=== PATIENT | female | born 1955 | race Caucasian/White ===

== ENCOUNTER 2017-04-28 04:09 | Emergency (ER) | payer OTHER ==
[~2017-04-28] VITALS: Ht 152.4 cm; Wt 81.4 kg
[~2017-04-28 04:09] MED LIST: LORA10CA PO; METF-163; METF10002 PO; OMEG500C3 PO; SIMV10TA3 PO; SIMV1POW
[2017-04-28 04:17] VITALS: BP 134/88
== END 2017-04-28 05:30 | disposition home or self-care (01) ==
LOC: ED 05:10
DX: H10.32 Unspecified acute conjunctivitis, left eye (principal); L03.213 Periorbital cellulitis; E11.9 Type 2 diabetes mellitus without complications; Z88.6 Allergy status to analgesic agent; Z88.8 Allergy status to other drugs, medicaments and biological substances
CPT/HCPCS: 99282

== ENCOUNTER 2019-06-03 13:57 | Inpatient (IN) | payer OTHER ==
[~2019-06-03] VITALS: Ht 152.4 cm; Wt 75.2 kg
[~2019-06-03 13:57] MED LIST changes: +SIMV10TA18 PO; -SIMV10TA3 PO
--- NOTE | 2019-06-03 14:24 | NUR ---
PT CAME IN CO OF SOB, ABD PAIN, AND COUGH X2DAYS. DENIES TRAUMA. PT SAYS SHE HAS DMII BUT IT IS CONTROLLED.
[2019-06-03 14:55] LABS: BASOPHILS # (AUTO) 0.02 x10^3/uL (0-0.1); BASOPHILS % (AUTO) 0 % (0-1); EOSINOPHILS # (AUTO) 0.02 x10^3/uL (0-0.4); EOSINOPHILS % (AUTO) 0 % (1-7); LYMPHOCYTES # (AUTO) 0.84 x10^3/uL (1-3.4); LYMPHOCYTES % (AUTO) 14 % (22-44); MD NO; MEAN CORPUSCULAR HGB CONC 33.7 g/dL (32.4-35.8); MEAN CORPUSCULAR VOLUME 91.8 fL (80-100); MONOCYTES # (AUTO) 0.19 x10^3/uL (0.2-0.8); MONOCYTES % (AUTO) 3 % (2-9); NEUTROPHILS # (AUTO) 4.95 x10^3/uL (1.8-6.8); NEUTROPHILS % (AUTO) 82 % (42-75); PLATELET COUNT 170 x10^3/uL (130-400); RED BLOOD COUNT 5.07 x10^6/uL (3.82-5.3); RED CELL DISTRIBUTION WIDTH 13.7 % (9.6-15.2)
[2019-06-03 15:03] LABS: MICROSCOPIC AUTO
[2019-06-03 15:06] LABS: ALANINE AMINOTRANSFERASE 43 U/L (12-78); ALBUMIN 3.7 g/dL (3.4-5.0); ANION GAP 9 mmol/L (5-15); CALCIUM 8.6 mg/dL (8.5-10.1); CHLORIDE 102 mmol/L (98-107)
[2019-06-03 15:06] LABS: CULTURE INDICATED? NO
[2019-06-03 15:08] LABS: ALKALINE PHOSPHATASE 94 U/L (45-117); BILIRUBIN,TOTAL 0.7 mg/dL (0.2-1.0); TOTAL PROTEIN 7.8 g/dL (6.4-8.2)
--- NOTE | 2019-06-03 15:10 | NUR ---
BREAK RN: PT UPRIGHT ON GURNEY AWAKE & CALM, RESPONDS APPROP TO STAFF, NAD, COMFORT MEASURES PROVIDED, CALL LIGHT WITHN REACH.
--- NOTE | 2019-06-03 15:41 | NUR ---
PT RESTING IN [facility]. O2 DROPPED TO 88% ON RM AIR. TO BRO Addendum: 06/03/19 at 1628 by MARCY PT PLACED BACK ON 2 LITERS 02
--- NOTE | 2019-06-03 16:28 | NUR ---
PT RESTING IN [place]. AWAITING COVID RULE OUT ROOM FOR ADM. PT EDUCATED ON PLAN OF CARE
[2019-06-03] MEDS ORDERED: PROMETHAZINE 25 MG/ML, 1ML IM PRN (17:30)
[2019-06-03] MEDS: GUAIFENESIN 200 MG TABLET PO SCH ×2 (17:30→22:27)
[2019-06-03] MEDS ORDERED: LABETALOL 5MG/ML, 20ML IVPush PRN (17:30)
[2019-06-03] MEDS ORDERED: hydrALAzine 20 MG/ML, 1ML IVPush PRN (17:30)
[2019-06-03] MEDS ORDERED: OMNIPAQUE 350 MG/ML, 100ML BOTTLE ONE (17:50)
--- NOTE | 2019-06-03 18:00 | NUR ---
PT RESTING IN [facility]. AWAITING CT.
[2019-06-03] MEDS: INSULIN LISPRO 100 UNITS/ML, PEN SQ-INSULIN SCH ×2 (18:34→22:46)
[2019-06-03 18:38] VITALS: BP 127/78
[2019-06-03] MEDS ORDERED: SIMVASTATIN 20 MG TABLET ONE (21:34)
[2019-06-03] MEDS ORDERED: DOXYCYCLINE 100MG TABLET ONE (21:34)
[2019-06-03] MEDS: CEFTRIAXONE PMX 1GM/50ML 50 ML IV SCH (22:25)
[2019-06-03] MEDS: SODIUM CHLORIDE 0.9% 1,000 ML IV SCH (22:25)
[2019-06-03] MEDS: HEPARIN 5,000 UNITS/ML, 1ML SQ SCH (22:26)
[2019-06-03] MEDS: SIMVASTATIN 10 MG TABLET PO SCH (22:26)
[2019-06-03] MEDS: DOXYCYCLINE 100MG CAP PO SCH (22:28)
[2019-06-03] MEDS: ONDANSETRON 2MG/ML, 2ML IVPush PRN (22:30)
[2019-06-03 22:48] VITALS: BP 139/86
[2019-06-04] MEDS ORDERED: OXYC5TAB3 PO (00:48)
[2019-06-04] MEDS ORDERED: DULO60CA56 PO (00:50)
[2019-06-04] MEDS ORDERED: CELE-47 PO (01:07)
[2019-06-04] MEDS ORDERED: EMPA25TA PO (01:11)
[2019-06-04] MEDS ORDERED: DULA0.75 SQ (01:14)
[2019-06-04] MEDS ORDERED: OXYcodone IR 5MG TABLET PO PRN (01:30)
[2019-06-04] MEDS ORDERED: OXYCODONE 10MG MC SCH (02:00)
[2019-06-04] MEDS ORDERED: OXYCODONE 5 MG MC SCH (02:00)
[2019-06-04] MEDS: OXYcodone IR 5MG TABLET PO PRN ×4 (02:15→23:20)
[2019-06-04] MEDS: SODIUM CHLORIDE 0.9% 1,000 ML IV SCH ×2 (03:11→17:13)
[2019-06-04 04:02] LABS: RAPID INFLUENZA A Negative (Negative); RAPID INFLUENZA B Negative (Negative)
[2019-06-04 05:16] LABS: MEAN CORPUSCULAR HEMOGLOBIN 31.3 pg (27.0-34.8); MEAN CORPUSCULAR HGB CONC 33.7 g/dL (32.4-35.8); MEAN CORPUSCULAR VOLUME 92.9 fL (80-100); MEAN PLATELET VOLUME 7.5 fL (7.4-10.4); PLATELET COUNT 172 x10^3/uL (130-400); RED CELL DISTRIBUTION WIDTH 13.5 % (9.6-15.2)
[2019-06-04 05:31] LABS: ALANINE AMINOTRANSFERASE 35 U/L (12-78); ANION GAP 6 mmol/L (5-15); CALCIUM 8.1 mg/dL (8.5-10.1); CHLORIDE 101 mmol/L (98-107)
[2019-06-04 05:33] LABS: ALKALINE PHOSPHATASE 74 U/L (45-117); BILIRUBIN,TOTAL 0.5 mg/dL (0.2-1.0); TOTAL PROTEIN 7.2 g/dL (6.4-8.2)
[2019-06-04 05:46] LABS: BASOPHILS # (AUTO) 0.01 x10^3/uL (0-0.1); BASOPHILS % (AUTO) 0 % (0-1); EOSINOPHILS # (AUTO) 0.01 x10^3/uL (0-0.4); EOSINOPHILS % (AUTO) 0 % (1-7); LYMPHOCYTES % (AUTO) 25 % (22-44); MD SCAN; MONOCYTES # (AUTO) 0.22 x10^3/uL (0.2-0.8); MONOCYTES % (AUTO) 5 % (2-9); NEUTROPHILS # (AUTO) 3.07 x10^3/uL (1.8-6.8); NEUTROPHILS % (AUTO) 70 % (42-75)
[2019-06-04] MEDS: ACETAMINOPHEN 325 MG TABLET PO PRN ×3 (07:50→21:53)
[2019-06-04] MEDS: GUAIFENESIN 200 MG TABLET PO SCH ×4 (07:50→21:54)
[2019-06-04] MEDS: HEPARIN 5,000 UNITS/ML, 1ML SQ SCH ×2 (07:51→17:14)
[2019-06-04] MEDS: INSULIN LISPRO 100 UNITS/ML, PEN SQ-INSULIN SCH ×4 (07:58→22:03)
[2019-06-04] MEDS ORDERED: LORATADINE 10 MG TABLET PO PRN (09:00)
[2019-06-04 10:05] VITALS: BP 130/72
[2019-06-04] MEDS: DULOXETINE 30 MG CAPSULE.DR PO SCH (10:05)
[2019-06-04] MEDS: DOXYCYCLINE 100MG CAP PO SCH ×2 (10:05→21:54)
[2019-06-04 14:24] VITALS: BP 142/83
[2019-06-04] MEDS: CEFTRIAXONE PMX 1GM/50ML 50 ML IV SCH (21:53)
[2019-06-04] MEDS: SIMVASTATIN 10 MG TABLET PO SCH (21:54)
[2019-06-04 21:55] VITALS: BP 139/84
[2019-06-05] MEDS: ENOXAPARIN 40 MG/0.4 ML SQ SCH (03:13)
[2019-06-05] MEDS: SODIUM CHLORIDE 0.9% 1,000 ML IV SCH ×2 (03:14→11:55)
[2019-06-05 03:27] VITALS: BP 124/74
[2019-06-05 06:14] LABS: ANION GAP 7 mmol/L (5-15); CALCIUM 8.1 mg/dL (8.5-10.1); CHLORIDE 103 mmol/L (98-107)
[2019-06-05 06:19] LABS: ALANINE AMINOTRANSFERASE 37 U/L (12-78); ALKALINE PHOSPHATASE 72 U/L (45-117); BILIRUBIN,TOTAL 0.5 mg/dL (0.2-1.0); CREATININE 0.72 mg/dL (0.55-1.02); TOTAL PROTEIN 7.3 g/dL (6.4-8.2)
[2019-06-05 06:25] LABS: BASOPHILS # (AUTO) 0.02 x10^3/uL (0-0.1); BASOPHILS % (AUTO) 0 % (0-1); EOSINOPHILS % (AUTO) 0 % (1-7); LYMPHOCYTES # (AUTO) 0.95 x10^3/uL (1-3.4); LYMPHOCYTES % (AUTO) 16 % (22-44); MD NO; MEAN CORPUSCULAR HEMOGLOBIN 30.8 pg (27.0-34.8); MEAN CORPUSCULAR HGB CONC 33.2 g/dL (32.4-35.8); MEAN CORPUSCULAR VOLUME 92.7 fL (80-100); MEAN PLATELET VOLUME 7.9 fL (7.4-10.4); MONOCYTES # (AUTO) 0.18 x10^3/uL (0.2-0.8); MONOCYTES % (AUTO) 3 % (2-9); NEUTROPHILS # (AUTO) 4.65 x10^3/uL (1.8-6.8); NEUTROPHILS % (AUTO) 80 % (42-75); PLATELET COUNT 188 x10^3/uL (130-400); RED BLOOD COUNT 4.68 x10^6/uL (3.82-5.3); RED CELL DISTRIBUTION WIDTH 13.4 % (9.6-15.2)
[2019-06-05] MEDS: GUAIFENESIN 200 MG TABLET PO SCH ×4 (06:26→20:50)
[2019-06-05] MEDS: OXYcodone IR 5MG TABLET PO PRN ×4 (06:26→23:26)
[2019-06-05 08:30] VITALS: BP 130/78
[2019-06-05] MEDS: DOXYCYCLINE 100MG CAP PO SCH (08:30)
[2019-06-05] MEDS: INSULIN LISPRO 100 UNITS/ML, PEN SQ-INSULIN SCH ×4 (08:30→20:50)
[2019-06-05] MEDS: DULOXETINE 30 MG CAPSULE.DR PO SCH (08:30)
[2019-06-05] MEDS: ACETAMINOPHEN 325 MG TABLET PO PRN ×2 (09:10→15:51)
[2019-06-05] MEDS: ONDANSETRON 2MG/ML, 2ML IVPush PRN ×2 (10:03→23:25)
[2019-06-05 14:42] VITALS: BP 142/77
[2019-06-05] MEDS: AZITHROMYCIN 500 MG in SODIUM CHLORIDE 0.9% 250 ML IV SCH (18:05)
[2019-06-05 20:50] VITALS: BP 135/73
[2019-06-05] MEDS: SIMVASTATIN 10 MG TABLET PO SCH (20:50)
[2019-06-05] MEDS ORDERED: HYDROXYCHLOROQUINE 200 MG TABLET PO SCH (21:00)
[2019-06-06 02:15] VITALS: BP 129/68
[2019-06-06] MEDS: ENOXAPARIN 40 MG/0.4 ML SQ SCH (02:37)
[2019-06-06] MEDS: ACETAMINOPHEN 325 MG TABLET PO PRN ×3 (02:38→18:20)
[2019-06-06] MEDS: OXYcodone IR 5MG TABLET PO PRN ×3 (06:05→21:00)
[2019-06-06] MEDS: GUAIFENESIN 200 MG TABLET PO SCH ×4 (06:05→21:00)
[2019-06-06] MEDS: INSULIN LISPRO 100 UNITS/ML, PEN SQ-INSULIN SCH ×4 (07:00→22:14)
[2019-06-06 08:01] VITALS: BP 120/69
[2019-06-06] MEDS: DULOXETINE 30 MG CAPSULE.DR PO SCH (08:06)
[2019-06-06] MEDS: HYDROXYCHLOROQUINE 200 MG TABLET PO SCH ×2 (08:06→21:00)
[2019-06-06 08:35] LABS: BASOPHILS % (AUTO) 0 % (0-1); EOSINOPHILS % (AUTO) 0 % (1-7); LYMPHOCYTES % (AUTO) 11 % (22-44); MD NO; MEAN CORPUSCULAR HEMOGLOBIN 30.9 pg (27.0-34.8); MEAN CORPUSCULAR HGB CONC 33.4 g/dL (32.4-35.8); MEAN CORPUSCULAR VOLUME 92.5 fL (80-100); MEAN PLATELET VOLUME 7.2 fL (7.4-10.4); MONOCYTES # (AUTO) 0.26 x10^3/uL (0.2-0.8); MONOCYTES % (AUTO) 4 % (2-9); NEUTROPHILS # (AUTO) 5.93 x10^3/uL (1.8-6.8); NEUTROPHILS % (AUTO) 85 % (42-75); PLATELET COUNT 216 x10^3/uL (130-400); RED BLOOD COUNT 4.57 x10^6/uL (3.82-5.3); RED CELL DISTRIBUTION WIDTH 13.2 % (9.6-15.2)
[2019-06-06 08:43] LABS: ALANINE AMINOTRANSFERASE 27 U/L (12-78); ALBUMIN 2.8 g/dL (3.4-5.0); ANION GAP 6 mmol/L (5-15); CALCIUM 8.2 mg/dL (8.5-10.1); CHLORIDE 105 mmol/L (98-107)
[2019-06-06 08:46] LABS: ALKALINE PHOSPHATASE 63 U/L (45-117); BILIRUBIN,TOTAL 0.6 mg/dL (0.2-1.0)
[2019-06-06] MEDS: ASCORBIC ACID 500 MG TABLET PO SCH ×2 (09:50→16:55)
[2019-06-06] MEDS: SENNA/DOCUSATE TABLET PO SCH (12:00)
[2019-06-06] MEDS: DOCUSATE 100 MG CAPSULE PO SCH (12:00)
[2019-06-06 13:58] VITALS: BP 148/73
[2019-06-06] MEDS: AZITHROMYCIN 500 MG in SODIUM CHLORIDE 0.9% 250 ML IV SCH (18:07)
[2019-06-06 21:00] VITALS: BP 126/74
[2019-06-06] MEDS: SIMVASTATIN 10 MG TABLET PO SCH (21:00)
[2019-06-07] MEDS: ENOXAPARIN 40 MG/0.4 ML SQ SCH (02:50)
[2019-06-07] MEDS: OXYcodone IR 5MG TABLET PO PRN ×2 (03:05→16:54)
[2019-06-07 03:25] VITALS: BP 147/83
[2019-06-07] MEDS: ONDANSETRON 2MG/ML, 2ML IVPush PRN (05:36)
[2019-06-07] MEDS: GUAIFENESIN 200 MG TABLET PO SCH ×4 (05:36→20:59)
[2019-06-07] MEDS: ACETAMINOPHEN 325 MG TABLET PO PRN ×2 (05:36→22:09)
[2019-06-07] MEDS: INSULIN LISPRO 100 UNITS/ML, PEN SQ-INSULIN SCH ×4 (07:00→21:00)
[2019-06-07 07:46] VITALS: BP 136/72
[2019-06-07] MEDS: ASCORBIC ACID 500 MG TABLET PO SCH ×2 (07:52→16:54)
[2019-06-07] MEDS: SENNA/DOCUSATE TABLET PO SCH (07:53)
[2019-06-07] MEDS: DULOXETINE 30 MG CAPSULE.DR PO SCH (07:53)
[2019-06-07] MEDS: HYDROXYCHLOROQUINE 200 MG TABLET PO SCH ×2 (07:53→20:59)
[2019-06-07] MEDS: DOCUSATE 100 MG CAPSULE PO SCH (07:53)
[2019-06-07] MEDS: PANTOPRAZOLE 40 MG IV IVPush SCH (10:22)
[2019-06-07] MEDS: KETOROLAC 30 MG/1 ML IVPush SCH ×3 (10:22→22:30)
[2019-06-07 12:25] VITALS: BP 150/84
[2019-06-07] MEDS: AZITHROMYCIN 500 MG in SODIUM CHLORIDE 0.9% 250 ML IV SCH (16:53)
[2019-06-07 20:50] VITALS: BP 156/81
[2019-06-07] MEDS: MELATONIN 3 MG TABLET PO SCH (20:58)
[2019-06-07] MEDS: SIMVASTATIN 10 MG TABLET PO SCH (20:59)
[2019-06-08] MEDS: ENOXAPARIN 40 MG/0.4 ML SQ SCH (02:28)
[2019-06-08 02:58] VITALS: BP 127/74
[2019-06-08] MEDS: KETOROLAC 30 MG/1 ML IVPush SCH ×4 (04:03→22:30)
[2019-06-08] MEDS ORDERED: LORazepam 2 MG/ML, 1ML IVPush PRN (05:00)
[2019-06-08] MEDS: GUAIFENESIN 200 MG TABLET PO SCH ×4 (05:04→21:11)
[2019-06-08] MEDS: INSULIN LISPRO 100 UNITS/ML, PEN SQ-INSULIN SCH ×4 (08:29→21:00)
[2019-06-08] MEDS: PANTOPRAZOLE 40 MG IV IVPush SCH (08:30)
[2019-06-08] MEDS: DOCUSATE 100 MG CAPSULE PO SCH (08:30)
[2019-06-08] MEDS: DULOXETINE 30 MG CAPSULE.DR PO SCH (08:30)
[2019-06-08] MEDS: ASCORBIC ACID 500 MG TABLET PO SCH ×2 (08:30→16:27)
[2019-06-08] MEDS: ZINC SULFATE 220 MG CAPSULE PO SCH (08:31)
[2019-06-08] MEDS: CHOLECALCIFEROL 1,000 UNIT TABLET PO SCH (08:31)
[2019-06-08] MEDS: HYDROXYCHLOROQUINE 200 MG TABLET PO SCH ×2 (08:31→21:10)
[2019-06-08] MEDS: SENNA/DOCUSATE TABLET PO SCH (08:31)
[2019-06-08 08:44] VITALS: BP 131/81
[2019-06-08 08:52] LABS: BASOPHILS # (AUTO) 0.01 x10^3/uL (0-0.1); BASOPHILS % (AUTO) 0 % (0-1); EOSINOPHILS # (AUTO) 0.04 x10^3/uL (0-0.4); EOSINOPHILS % (AUTO) 1 % (1-7); LYMPHOCYTES # (AUTO) 0.73 x10^3/uL (1-3.4); LYMPHOCYTES % (AUTO) 15 % (22-44); MD NO; MEAN CORPUSCULAR HEMOGLOBIN 31.2 pg (27.0-34.8); MEAN CORPUSCULAR HGB CONC 34.1 g/dL (32.4-35.8); MEAN CORPUSCULAR VOLUME 91.6 fL (80-100); MONOCYTES # (AUTO) 0.26 x10^3/uL (0.2-0.8); MONOCYTES % (AUTO) 5 % (2-9); NEUTROPHILS # (AUTO) 3.89 x10^3/uL (1.8-6.8); NEUTROPHILS % (AUTO) 79 % (42-75); PLATELET COUNT 299 x10^3/uL (130-400); RED BLOOD COUNT 4.74 x10^6/uL (3.82-5.3)
[2019-06-08 08:56] LABS: ALBUMIN 2.7 g/dL (3.4-5.0); ANION GAP 5 mmol/L (5-15); CHLORIDE 103 mmol/L (98-107)
[2019-06-08 09:03] LABS: ALANINE AMINOTRANSFERASE 44 U/L (12-78); ALKALINE PHOSPHATASE 75 U/L (45-117); BILIRUBIN,TOTAL 0.7 mg/dL (0.2-1.0); CREATININE 0.66 mg/dL (0.55-1.02); TOTAL PROTEIN 7.1 g/dL (6.4-8.2)
[2019-06-08 12:39] VITALS: BP 148/83
[2019-06-08] MEDS: AZITHROMYCIN 500 MG in SODIUM CHLORIDE 0.9% 250 ML IV SCH (16:27)
[2019-06-08 20:37] VITALS: BP 148/81
[2019-06-08] MEDS: MELATONIN 3 MG TABLET PO SCH (21:11)
[2019-06-08] MEDS: SIMVASTATIN 10 MG TABLET PO SCH (21:11)
[2019-06-09] MEDS: ACETAMINOPHEN 325 MG TABLET PO PRN (00:15)
[2019-06-09] MEDS: ENOXAPARIN 40 MG/0.4 ML SQ SCH (02:35)
[2019-06-09 03:06] VITALS: BP 132/74
[2019-06-09] MEDS: KETOROLAC 30 MG/1 ML IVPush SCH (04:24)
[2019-06-09] MEDS: PANTOPRAZOLE 40MG TABLET PO SCH (05:36)
[2019-06-09] MEDS: GUAIFENESIN 200 MG TABLET PO SCH ×4 (05:36→21:00)
[2019-06-09] MEDS: SENNA/DOCUSATE TABLET PO SCH (08:44)
[2019-06-09] MEDS: ZINC SULFATE 220 MG CAPSULE PO SCH (08:44)
[2019-06-09] MEDS: DULOXETINE 30 MG CAPSULE.DR PO SCH (08:44)
[2019-06-09] MEDS: DOCUSATE 100 MG CAPSULE PO SCH (08:44)
[2019-06-09] MEDS: CHOLECALCIFEROL 1,000 UNIT TABLET PO SCH (08:44)
[2019-06-09] MEDS: ASCORBIC ACID 500 MG TABLET PO SCH ×2 (08:44→16:35)
[2019-06-09] MEDS: HYDROXYCHLOROQUINE 200 MG TABLET PO SCH ×2 (08:44→21:00)
[2019-06-09 08:45] VITALS: BP 115/71
[2019-06-09] MEDS: INSULIN LISPRO 100 UNITS/ML, PEN SQ-INSULIN SCH ×4 (09:01→21:11)
[2019-06-09] MEDS: BUTALB/APAP/CAFFEINE 50MG/325MG/40MG PO PRN ×2 (11:53→16:59)
[2019-06-09 16:06] VITALS: BP 129/84
[2019-06-09] MEDS: AZITHROMYCIN 500 MG in SODIUM CHLORIDE 0.9% 250 ML IV SCH (16:35)
[2019-06-09 19:16] VITALS: BP 125/79
[2019-06-09] MEDS: MELATONIN 3 MG TABLET PO SCH (21:00)
[2019-06-09] MEDS: SIMVASTATIN 10 MG TABLET PO SCH (21:00)
[2019-06-10] MEDS: ENOXAPARIN 40 MG/0.4 ML SQ SCH (02:20)
[2019-06-10 02:40] VITALS: BP 118/70
[2019-06-10] MEDS: BUTALB/APAP/CAFFEINE 50MG/325MG/40MG PO PRN ×2 (04:22→17:15)
[2019-06-10] MEDS: PANTOPRAZOLE 40MG TABLET PO SCH (06:00)
[2019-06-10] MEDS: GUAIFENESIN 200 MG TABLET PO SCH ×4 (06:00→20:49)
[2019-06-10] MEDS: SENNA/DOCUSATE TABLET PO SCH (07:43)
[2019-06-10] MEDS: DULOXETINE 30 MG CAPSULE.DR PO SCH (07:43)
[2019-06-10] MEDS: ZINC SULFATE 220 MG CAPSULE PO SCH (07:43)
[2019-06-10] MEDS: CHOLECALCIFEROL 1,000 UNIT TABLET PO SCH (07:43)
[2019-06-10] MEDS: ASCORBIC ACID 500 MG TABLET PO SCH ×2 (07:44→16:13)
[2019-06-10] MEDS: CEFTRIAXONE PMX 1GM/50ML 50 ML IV SCH (07:44)
[2019-06-10 08:11] LABS: BASOPHILS # (AUTO) 0.01 x10^3/uL (0-0.1); BASOPHILS % (AUTO) 0 % (0-1); EOSINOPHILS # (AUTO) 0.15 x10^3/uL (0-0.4); EOSINOPHILS % (AUTO) 3 % (1-7); LYMPHOCYTES # (AUTO) 0.99 x10^3/uL (1-3.4); LYMPHOCYTES % (AUTO) 19 % (22-44); MD NO; MEAN CORPUSCULAR HGB CONC 33.9 g/dL (32.4-35.8); MEAN CORPUSCULAR VOLUME 91.5 fL (80-100); MEAN PLATELET VOLUME 6.7 fL (7.4-10.4); MONOCYTES # (AUTO) 0.29 x10^3/uL (0.2-0.8); MONOCYTES % (AUTO) 6 % (2-9); NEUTROPHILS # (AUTO) 3.82 x10^3/uL (1.8-6.8); NEUTROPHILS % (AUTO) 73 % (42-75); PLATELET COUNT 374 x10^3/uL (130-400); RED BLOOD COUNT 4.49 x10^6/uL (3.82-5.3)
[2019-06-10 08:12] VITALS: BP 111/68
[2019-06-10] MEDS: DOCUSATE 100 MG CAPSULE PO SCH (08:14)
[2019-06-10 08:18] LABS: ALANINE AMINOTRANSFERASE 45 U/L (12-78); ALBUMIN 2.4 g/dL (3.4-5.0); ANION GAP 8 mmol/L (5-15); CALCIUM 7.9 mg/dL (8.5-10.1); CHLORIDE 105 mmol/L (98-107); CREATININE 0.76 mg/dL (0.55-1.02)
[2019-06-10 08:26] LABS: ALKALINE PHOSPHATASE 77 U/L (45-117); BILIRUBIN,TOTAL 0.4 mg/dL (0.2-1.0); TOTAL PROTEIN 6.6 g/dL (6.4-8.2)
[2019-06-10] MEDS: INSULIN LISPRO 100 UNITS/ML, PEN SQ-INSULIN SCH ×4 (08:33→21:00)
[2019-06-10 14:00] VITALS: BP 118/72
[2019-06-10] MEDS ORDERED: POTASSIUM CHLORIDE 20 MEQ TAB.ER.PRT PO ONE (16:00)
[2019-06-10] MEDS: metFORMIN 500 MG TABLET PO SCH (16:13)
[2019-06-10 20:00] VITALS: BP 111/68
[2019-06-10] MEDS: SIMVASTATIN 10 MG TABLET PO SCH (20:49)
[2019-06-10] MEDS: MELATONIN 3 MG TABLET PO SCH (20:50)
[2019-06-11 02:53] VITALS: BP 118/63
[2019-06-11] MEDS: PANTOPRAZOLE 40MG TABLET PO SCH (06:15)
[2019-06-11] MEDS: ENOXAPARIN 40 MG/0.4 ML SQ SCH (06:15)
[2019-06-11] MEDS: GUAIFENESIN 200 MG TABLET PO SCH ×4 (06:15→20:28)
[2019-06-11] MEDS: BUTALB/APAP/CAFFEINE 50MG/325MG/40MG PO PRN ×3 (06:15→20:28)
[2019-06-11] MEDS: INSULIN LISPRO 100 UNITS/ML, PEN SQ-INSULIN SCH ×4 (07:00→20:40)
[2019-06-11] MEDS: metFORMIN 500 MG TABLET PO SCH ×4 (08:00→17:00)
[2019-06-11] MEDS: SENNA/DOCUSATE TABLET PO SCH (08:12)
[2019-06-11] MEDS: ZINC SULFATE 220 MG CAPSULE PO SCH (08:12)
[2019-06-11] MEDS: CHOLECALCIFEROL 1,000 UNIT TABLET PO SCH (08:12)
[2019-06-11] MEDS: DULOXETINE 30 MG CAPSULE.DR PO SCH (08:12)
[2019-06-11] MEDS: ASCORBIC ACID 500 MG TABLET PO SCH ×2 (08:12→16:21)
[2019-06-11] MEDS: DOCUSATE 100 MG CAPSULE PO SCH (08:12)
[2019-06-11 08:15] VITALS: BP 127/81
[2019-06-11 08:26] LABS: ANION GAP 8 mmol/L (5-15); CALCIUM 8.2 mg/dL (8.5-10.1); CHLORIDE 105 mmol/L (98-107); CREATININE 0.79 mg/dL (0.55-1.02)
[2019-06-11 13:00] VITALS: BP 122/83
[2019-06-11] MEDS: CEFTRIAXONE PMX 1GM/50ML 50 ML IV SCH (16:20)
[2019-06-11] MEDS: ACETAMINOPHEN 325 MG TABLET PO PRN ×2 (16:21→20:28)
[2019-06-11 19:03] VITALS: BP 146/83
[2019-06-11] MEDS: MELATONIN 3 MG TABLET PO SCH (20:28)
[2019-06-11] MEDS: SIMVASTATIN 10 MG TABLET PO SCH (20:28)
[2019-06-12 00:40] VITALS: BP 106/59
[2019-06-12] MEDS: PANTOPRAZOLE 40MG TABLET PO SCH (06:26)
[2019-06-12] MEDS: GUAIFENESIN 200 MG TABLET PO SCH ×4 (06:26→21:00)
[2019-06-12] MEDS: ENOXAPARIN 40 MG/0.4 ML SQ SCH (06:26)
[2019-06-12] MEDS: metFORMIN 500 MG TABLET PO SCH ×2 (07:07→15:56)
[2019-06-12] MEDS: ZINC SULFATE 220 MG CAPSULE PO SCH (07:59)
[2019-06-12] MEDS: ASCORBIC ACID 500 MG TABLET PO SCH ×2 (07:59→17:20)
[2019-06-12] MEDS: DOCUSATE 100 MG CAPSULE PO SCH (07:59)
[2019-06-12] MEDS: SENNA/DOCUSATE TABLET PO SCH (07:59)
[2019-06-12] MEDS: CHOLECALCIFEROL 1,000 UNIT TABLET PO SCH (08:00)
[2019-06-12] MEDS: DULOXETINE 30 MG CAPSULE.DR PO SCH (08:00)
[2019-06-12] MEDS: INSULIN LISPRO 100 UNITS/ML, PEN SQ-INSULIN SCH ×4 (08:17→21:55)
[2019-06-12 10:17] VITALS: BP 111/71
[2019-06-12 14:25] VITALS: BP 124/81
[2019-06-12] MEDS: CEFTRIAXONE PMX 1GM/50ML 50 ML IV SCH (17:20)
[2019-06-12 19:42] VITALS: BP 136/88
[2019-06-12] MEDS: MELATONIN 3 MG TABLET PO SCH (21:00)
[2019-06-12] MEDS: SIMVASTATIN 10 MG TABLET PO SCH (21:00)
[2019-06-13 01:33] VITALS: BP 116/62
[2019-06-13] MEDS: ENOXAPARIN 40 MG/0.4 ML SQ SCH (06:05)
[2019-06-13] MEDS: ACETAMINOPHEN 325 MG TABLET PO PRN ×3 (06:05→17:01)
[2019-06-13] MEDS: GUAIFENESIN 200 MG TABLET PO SCH ×4 (06:05→21:10)
[2019-06-13] MEDS: PANTOPRAZOLE 40MG TABLET PO SCH (06:05)
[2019-06-13] MEDS: metFORMIN 500 MG TABLET PO SCH ×2 (07:04→15:50)
[2019-06-13 07:42] VITALS: BP 121/81
[2019-06-13] MEDS: DULOXETINE 30 MG CAPSULE.DR PO SCH (08:01)
[2019-06-13] MEDS: SENNA/DOCUSATE TABLET PO SCH (08:01)
[2019-06-13] MEDS: BUTALB/APAP/CAFFEINE 50MG/325MG/40MG PO PRN ×3 (08:01→17:01)
[2019-06-13] MEDS: ASCORBIC ACID 500 MG TABLET PO SCH ×2 (08:01→17:01)
[2019-06-13] MEDS: CHOLECALCIFEROL 1,000 UNIT TABLET PO SCH (08:01)
[2019-06-13] MEDS: DOCUSATE 100 MG CAPSULE PO SCH (08:01)
[2019-06-13] MEDS: ZINC SULFATE 220 MG CAPSULE PO SCH (08:01)
[2019-06-13] MEDS: INSULIN LISPRO 100 UNITS/ML, PEN SQ-INSULIN SCH ×4 (08:34→21:20)
[2019-06-13 13:25] VITALS: BP 124/69
[2019-06-13] MEDS: CEFTRIAXONE PMX 1GM/50ML 50 ML IV SCH (17:01)
[2019-06-13 19:57] VITALS: BP 130/80
[2019-06-13] MEDS: MELATONIN 3 MG TABLET PO SCH (21:10)
[2019-06-13] MEDS: SIMVASTATIN 10 MG TABLET PO SCH (21:10)
[2019-06-14 02:04] VITALS: BP 172/64
[2019-06-14 06:06] LABS: ALBUMIN 2.9 g/dL (3.4-5.0); ANION GAP 7 mmol/L (5-15); BASOPHILS # (AUTO) 0.02 x10^3/uL (0-0.1); BASOPHILS % (AUTO) 0 % (0-1); CALCIUM 8.6 mg/dL (8.5-10.1); CHLORIDE 102 mmol/L (98-107); EOSINOPHILS % (AUTO) 4 % (1-7); LYMPHOCYTES # (AUTO) 1.46 x10^3/uL (1-3.4); LYMPHOCYTES % (AUTO) 30 % (22-44); MD NO; MEAN CORPUSCULAR HEMOGLOBIN 30.7 pg (27.0-34.8); MEAN CORPUSCULAR HGB CONC 33.2 g/dL (32.4-35.8); MEAN CORPUSCULAR VOLUME 92.4 fL (80-100); MONOCYTES % (AUTO) 6 % (2-9); NEUTROPHILS # (AUTO) 2.99 x10^3/uL (1.8-6.8); NEUTROPHILS % (AUTO) 60 % (42-75); PLATELET COUNT 491 x10^3/uL (130-400); RED BLOOD COUNT 4.55 x10^6/uL (3.82-5.3); RED CELL DISTRIBUTION WIDTH 13.3 % (9.6-15.2)
[2019-06-14 06:14] LABS: ALANINE AMINOTRANSFERASE 31 U/L (12-78); ALKALINE PHOSPHATASE 87 U/L (45-117); BILIRUBIN,TOTAL 0.2 mg/dL (0.2-1.0); CREATININE 0.87 mg/dL (0.55-1.02); TOTAL PROTEIN 7.5 g/dL (6.4-8.2)
[2019-06-14] MEDS: PANTOPRAZOLE 40MG TABLET PO SCH (06:26)
[2019-06-14] MEDS: GUAIFENESIN 200 MG TABLET PO SCH ×4 (06:26→20:14)
[2019-06-14] MEDS: ENOXAPARIN 40 MG/0.4 ML SQ SCH (06:26)
[2019-06-14] MEDS: BUTALB/APAP/CAFFEINE 50MG/325MG/40MG PO PRN ×2 (06:53→16:47)
[2019-06-14] MEDS: SENNA/DOCUSATE TABLET PO SCH (07:20)
[2019-06-14] MEDS: INSULIN LISPRO 100 UNITS/ML, PEN SQ-INSULIN SCH ×4 (08:00→20:15)
[2019-06-14] MEDS: metFORMIN 500 MG TABLET PO SCH ×3 (08:00→16:40)
[2019-06-14] MEDS: ZINC SULFATE 220 MG CAPSULE PO SCH (08:08)
[2019-06-14] MEDS: ASCORBIC ACID 500 MG TABLET PO SCH ×2 (08:08→16:47)
[2019-06-14] MEDS: DOCUSATE 100 MG CAPSULE PO SCH (08:09)
[2019-06-14] MEDS: DULOXETINE 30 MG CAPSULE.DR PO SCH (08:09)
[2019-06-14] MEDS: CHOLECALCIFEROL 1,000 UNIT TABLET PO SCH (08:09)
[2019-06-14 08:26] VITALS: BP 115/76
[2019-06-14 13:50] VITALS: BP 123/75
[2019-06-14] MEDS: CEFTRIAXONE PMX 1GM/50ML 50 ML IV SCH (16:47)
[2019-06-14 19:35] VITALS: BP 131/78
[2019-06-14] MEDS: MELATONIN 3 MG TABLET PO SCH (20:14)
[2019-06-14] MEDS: SIMVASTATIN 10 MG TABLET PO SCH (20:14)
[2019-06-15] MEDS: BUTALB/APAP/CAFFEINE 50MG/325MG/40MG PO PRN ×4 (00:27→23:10)
[2019-06-15 02:32] VITALS: BP 117/74
[2019-06-15] MEDS: ENOXAPARIN 40 MG/0.4 ML SQ SCH (05:24)
[2019-06-15] MEDS: PANTOPRAZOLE 40MG TABLET PO SCH (05:24)
[2019-06-15] MEDS: GUAIFENESIN 200 MG TABLET PO SCH ×4 (05:24→19:58)
[2019-06-15] MEDS: SENNA/DOCUSATE TABLET PO SCH (08:29)
[2019-06-15] MEDS: metFORMIN 500 MG TABLET PO SCH ×2 (08:29→16:55)
[2019-06-15] MEDS: DOCUSATE 100 MG CAPSULE PO SCH (08:29)
[2019-06-15] MEDS: DULOXETINE 30 MG CAPSULE.DR PO SCH (08:29)
[2019-06-15] MEDS: CHOLECALCIFEROL 1,000 UNIT TABLET PO SCH (08:29)
[2019-06-15] MEDS: ASCORBIC ACID 500 MG TABLET PO SCH ×2 (08:29→16:55)
[2019-06-15] MEDS: ZINC SULFATE 220 MG CAPSULE PO SCH (08:29)
[2019-06-15] MEDS: INSULIN LISPRO 100 UNITS/ML, PEN SQ-INSULIN SCH ×4 (08:30→20:08)
[2019-06-15 09:00] VITALS: BP 122/79
[2019-06-15 12:31] VITALS: BP 116/75
[2019-06-15] MEDS: MELATONIN 3 MG TABLET PO SCH (19:58)
[2019-06-15] MEDS: SIMVASTATIN 10 MG TABLET PO SCH (20:00)
[2019-06-15 20:28] VITALS: BP 131/88
[2019-06-16 00:11] VITALS: BP 126/87
[2019-06-16 06:16] LABS: BASOPHILS # (AUTO) 0.04 x10^3/uL (0-0.1); BASOPHILS % (AUTO) 1 % (0-1); EOSINOPHILS % (AUTO) 4 % (1-7); LYMPHOCYTES # (AUTO) 1.45 x10^3/uL (1-3.4); LYMPHOCYTES % (AUTO) 32 % (22-44); MD NO; MEAN CORPUSCULAR HEMOGLOBIN 30.8 pg (27.0-34.8); MEAN CORPUSCULAR HGB CONC 33.3 g/dL (32.4-35.8); MEAN CORPUSCULAR VOLUME 92.4 fL (80-100); MEAN PLATELET VOLUME 7.2 fL (7.4-10.4); MONOCYTES # (AUTO) 0.38 x10^3/uL (0.2-0.8); MONOCYTES % (AUTO) 8 % (2-9); NEUTROPHILS # (AUTO) 2.45 x10^3/uL (1.8-6.8); NEUTROPHILS % (AUTO) 54 % (42-75); PLATELET COUNT 480 x10^3/uL (130-400); RED BLOOD COUNT 4.66 x10^6/uL (3.82-5.3); RED CELL DISTRIBUTION WIDTH 13.3 % (9.6-15.2)
[2019-06-16 06:27] LABS: ANION GAP 7 mmol/L (5-15); CALCIUM 8.6 mg/dL (8.5-10.1); CHLORIDE 103 mmol/L (98-107)
[2019-06-16] MEDS: BUTALB/APAP/CAFFEINE 50MG/325MG/40MG PO PRN ×3 (06:30→21:30)
[2019-06-16] MEDS: PANTOPRAZOLE 40MG TABLET PO SCH (06:30)
[2019-06-16] MEDS: GUAIFENESIN 200 MG TABLET PO SCH ×4 (06:30→21:31)
[2019-06-16] MEDS: ENOXAPARIN 40 MG/0.4 ML SQ SCH (06:30)
[2019-06-16 06:31] LABS: ALANINE AMINOTRANSFERASE 34 U/L (12-78); ALKALINE PHOSPHATASE 87 U/L (45-117); BILIRUBIN,TOTAL 0.3 mg/dL (0.2-1.0); C-REACTIVE PROTEIN, QUANT 0.68 mg/dL (0.02-0.49); CREATININE 1.01 mg/dL (0.55-1.02); TOTAL PROTEIN 7.5 g/dL (6.4-8.2)
[2019-06-16 08:37] VITALS: BP 119/76
[2019-06-16] MEDS: INSULIN LISPRO 100 UNITS/ML, PEN SQ-INSULIN SCH ×4 (08:54→21:38)
[2019-06-16] MEDS: metFORMIN 500 MG TABLET PO SCH ×3 (08:54→16:42)
[2019-06-16] MEDS: ASCORBIC ACID 500 MG TABLET PO SCH ×2 (08:54→16:43)
[2019-06-16] MEDS: DULOXETINE 30 MG CAPSULE.DR PO SCH (08:55)
[2019-06-16] MEDS: ZINC SULFATE 220 MG CAPSULE PO SCH (08:55)
[2019-06-16] MEDS: DOCUSATE 100 MG CAPSULE PO SCH (08:55)
[2019-06-16] MEDS: SENNA/DOCUSATE TABLET PO SCH (08:55)
[2019-06-16] MEDS: CHOLECALCIFEROL 1,000 UNIT TABLET PO SCH (08:55)
[2019-06-16 14:05] VITALS: BP 107/69
[2019-06-16] MEDS ORDERED: FUROSEMIDE 40 MG/4 ML IV ONE (15:00)
[2019-06-16 18:48] VITALS: BP 117/72
[2019-06-16] MEDS: SIMVASTATIN 10 MG TABLET PO SCH (21:30)
[2019-06-16] MEDS: MELATONIN 3 MG TABLET PO SCH (21:30)
[2019-06-17 01:12] VITALS: BP 106/80
[2019-06-17] MEDS: GUAIFENESIN 200 MG TABLET PO SCH ×4 (06:26→21:24)
[2019-06-17] MEDS: PANTOPRAZOLE 40MG TABLET PO SCH (06:26)
[2019-06-17] MEDS: BUTALB/APAP/CAFFEINE 50MG/325MG/40MG PO PRN ×2 (06:27→17:58)
[2019-06-17] MEDS: ENOXAPARIN 40 MG/0.4 ML SQ SCH (06:27)
[2019-06-17] MEDS: metFORMIN 500 MG TABLET PO SCH ×2 (07:47→16:14)
[2019-06-17] MEDS: INSULIN LISPRO 100 UNITS/ML, PEN SQ-INSULIN SCH ×4 (08:04→21:31)
[2019-06-17] MEDS: DULOXETINE 30 MG CAPSULE.DR PO SCH (08:05)
[2019-06-17] MEDS: CHOLECALCIFEROL 1,000 UNIT TABLET PO SCH (08:05)
[2019-06-17] MEDS: SENNA/DOCUSATE TABLET PO SCH (08:05)
[2019-06-17] MEDS: DOCUSATE 100 MG CAPSULE PO SCH (08:05)
[2019-06-17] MEDS: ASCORBIC ACID 500 MG TABLET PO SCH ×2 (08:05→17:01)
[2019-06-17] MEDS: ZINC SULFATE 220 MG CAPSULE PO SCH (08:05)
[2019-06-17 08:15] VITALS: BP 129/84
[2019-06-17 12:23] VITALS: BP 119/81
[2019-06-17] MEDS: MELATONIN 3 MG TABLET PO SCH (21:24)
[2019-06-17] MEDS: SIMVASTATIN 10 MG TABLET PO SCH (21:24)
[2019-06-17 21:46] VITALS: BP 120/75
[2019-06-18] MEDS: BUTALB/APAP/CAFFEINE 50MG/325MG/40MG PO PRN ×2 (00:01→06:27)
[2019-06-18 00:32] VITALS: BP 109/71
[2019-06-18] MEDS: ENOXAPARIN 40 MG/0.4 ML SQ SCH (06:27)
[2019-06-18] MEDS: GUAIFENESIN 200 MG TABLET PO SCH ×2 (06:27→11:00)
[2019-06-18] MEDS: PANTOPRAZOLE 40MG TABLET PO SCH (06:27)
[2019-06-18] MEDS: INSULIN LISPRO 100 UNITS/ML, PEN SQ-INSULIN SCH ×2 (07:00→11:00)
[2019-06-18 08:00] VITALS: BP 112/82
[2019-06-18] MEDS: ASCORBIC ACID 500 MG TABLET PO SCH (08:00)
[2019-06-18] MEDS: metFORMIN 500 MG TABLET PO SCH (08:00)
[2019-06-18] MEDS: DOCUSATE 100 MG CAPSULE PO SCH (08:19)
[2019-06-18] MEDS: ZINC SULFATE 220 MG CAPSULE PO SCH (08:19)
[2019-06-18] MEDS: CHOLECALCIFEROL 1,000 UNIT TABLET PO SCH (08:19)
[2019-06-18] MEDS: DULOXETINE 30 MG CAPSULE.DR PO SCH (08:19)
[2019-06-18] MEDS ORDERED: ALPR0.254 PO (08:27)
[2019-06-18] MEDS: SENNA/DOCUSATE TABLET PO SCH (09:00)
== END 2019-06-18 14:26 | disposition home or self-care (01) | DRG 177 ==
LOC: ED 14:37 → EDIP 15:53 → SUATTDRO 15:54 → 3WST 18:22 → 3E 06-06 10:28
PROVIDERS: ADMIT Hospitalist; ATTEND Family Medicine
DX: U07.1 COVID-19 (principal); J96.01 Acute respiratory failure with hypoxia; J12.89 Other viral pneumonia; E87.1 Hypo-osmolality and hyponatremia; E86.1 Hypovolemia; E11.40 Type 2 diabetes mellitus with diabetic neuropathy, unspecified; E11.65 Type 2 diabetes mellitus with hyperglycemia; E66.9 Obesity, unspecified; E78.5 Hyperlipidemia, unspecified; Z87.891 Personal history of nicotine dependence; Z85.42 Personal history of malignant neoplasm of other parts of uterus; Z80.0 Family history of malignant neoplasm of digestive organs; Z90.710 Acquired absence of both cervix and uterus; Z79.84 Long term (current) use of oral hypoglycemic drugs; Z79.899 Other long term (current) drug therapy; Z68.32 Body mass index [BMI] 32.0-32.9, adult; Z88.6 Allergy status to analgesic agent; Z88.8 Allergy status to other drugs, medicaments and biological substances; Z85.528 Personal history of other malignant neoplasm of kidney
CPT/HCPCS: 36415; 71045; 71275; 80048; 80053; 81001; 82962; 83036; 83615; 83690; 83735; 84145; 85025; 85379; 86140; 87040; 87081; 87400; 87880; 93005; G0378; J0456; J0696; J1644; J1650; J1885; J1940; J2405; Q9967; C9113; J1815; J2060; J7030; J7050